=== PATIENT | female | born 1990 | race Two or more races ===

== ENCOUNTER 2019-09-06 06:00 | Day surgery (SDC) | payer OTHER ==
[2019-09-06] MEDS ORDERED: MIDAZOLAM 2 MG/2 ML VIAL IVP ONE (06:01)
[2019-09-06] MEDS ORDERED: PROPOFOL 200 MG/20 ML VIAL IVP ONE (06:01)
[2019-09-06] MEDS ORDERED: GLYCOPYRROLATE 1 MG/5 ML VIAL IVP ONE (06:01)
[2019-09-06] MEDS ORDERED: fentaNYL 100 MCG/2 ML VIAL IVP ONE (06:01)
[2019-09-06] MEDS ORDERED: LACTATED RINGERS 1,000 ML IV ONE (06:22)
[2019-09-06 06:49] LABS: HCG UR QUAL NEGATIVE
--- NOTE | 2019-09-06 07:01 | ANESTHESIA ---
Pre-Anesthesia VS, & Labs - Diagnosis symptomatic anal skin tag - Procedure excision of anal skin tag Vital Signs: Temp Pulse Resp BP Pulse Ox 38.0 C H 78 15 124/78 100 09/06/19 06:28 09/06/19 06:28 09/06/19 06:28 09/06/19 06:28 09/06/19 06:28 Height 5 ft 6 in Weight (kg) 62 kg - Is Patient ?: No (HCG negative) Home Medications and Allergies Home Medications: Ambulatory Orders Doxycycline Hyclate 100 mg PO BID 08/30/19 Ivermectin [Soolantra] 1 applic TP ONCE PRN 08/30/19 Levonorgestrel-Ethin Estradiol [Orsythia] 1 each PO DAILY 08/30/19 Doxycycline Hyclate 100 mg PO BID 08/30/19 Ivermectin [Soolantra] 1 applic TP ONCE PRN 08/30/19 Levonorgestrel-Ethin Estradiol [Orsythia] 1 each PO DAILY 08/30/19 Allergies/Adverse Reactions: Allergies Allergy/AdvReac Type Severity Reaction Status Date / Time latex Allergy Itching, Verified 09/06/19 06:45 rash Anes History & Medical History - Anesthetic History Anesthesia Complications: reports: No previous complications (has david had any anesthesia in the past) Family history of Anesthesia Complications: Denies Family history of Malignant Hyperthermia: Denies - Medical History Cardiovascular: reports: None Pulmonary: reports: None Gastrointestinal: reports: None Urinary: reports: None Neuro: reports: None Musculoskeletal: reports: None, Chronic back pain Endocrine/Autoimmune: reports: None Blood Disorders: reports: None Skin: reports: Rosacea Smoking Status: Never smoker Psychosocial: reports: Anxiety Exam Dental: WNL Mouth Openin Fingerbreadth Neck Mobility: Normal Mallampati classification: II Thyromental Distance: 4-6 cm Respiratory: Lungs clear, Normal breath sounds, No respiratory distress, No accessory muscle use Cardiovascular: Regular rate, Normal S1, Normal S2, No murmurs Abdomen: Normal bowel sounds, Soft, No tenderness, No hepatospenomegaly, No masses Extremities: No clubbing, No cyanosis, No edema, Normal pulses, No t enderness/swelling Neurological: Normal gait, Normal speech, Strength at 5/5 X4 ext, Normal tone, Sensation intact, Cranial nerves 3-12 NL, Reflexes 2+ Mental/Cognitive Status: Alert/Oriented X3, Normal for patient Cognitive Status: Within normal limits Plan Anesthesia Type: General Consent for Procedure(s) Verified and Reviewed: Yes Code Status: Attempt Resuscitation ASA classification: 1-Healthy patient Is this case an emergency?: No
[2019-09-06] MEDS ORDERED: BUPIVACAINE 0.5% PF 30 ML VIAL ONE (07:04)
--- NOTE | 2019-09-06 07:10 | ANESTHESIA ---
Pre-Anesthesia VS, & Labs Vital Signs: Temp Pulse Resp BP Pulse Ox 38.0 C H 78 15 124/78 100 09/06/19 06:28 09/06/19 06:28 09/06/19 06:28 09/06/19 06:28 09/06/19 06:28 Height 5 ft 6 in Weight (kg) 62 kg Home Medications and Allergies Home Medications: Ambulatory Orders Doxycycline Hyclate 100 mg PO BID 08/30/19 Ivermectin [Soolantra] 1 applic TP ONCE PRN 08/30/19 Levonorgestrel-Ethin Estradiol [Orsythia] 1 each PO DAILY 08/30/19 Doxycycline Hyclate 100 mg PO BID 08/30/19 Ivermectin [Soolantra] 1 applic TP ONCE PRN 08/30/19 Levonorgestrel-Ethin Estradiol [Orsythia] 1 each PO DAILY 08/30/19 Allergies/Adverse Reactions: Allergies Allergy/AdvReac Type Severity Reaction Status Date / Time latex Allergy Itching, Verified 09/06/19 06:45 rash Anes History & Medical History - Medical History Cardiovascular: reports: None Pulmonary: reports: None Gastrointestinal: reports: None Urinary: reports: None Musculoskeletal: reports: Chronic back pain Endocrine/Autoimmune: reports: None Skin: reports: Rosacea
--- NOTE | 2019-09-06 07:33 | SURGERY HX AND PHYSICAL(T) ---
Surgical History & Physical - PMH/PSH/Social Hx Does the pt have a hx of MRSA?: No Neurological History: None Eyes, Ears, Nose, Throat: Chronic vision loss Cardiovascular: None Respiratory: None Skin: Rosacea Endocrine/Autoimmune: None Gastrointestinal: None Urinary: None Musculoskeletal: Chronic back pain Blood Disorders: None Psychiatric: Anxiety Smoking Status: Never smoker - Home Meds and Allergies Home Medications: Doxycycline Hyclate 100 mg PO BID 08/30/19 Ivermectin [Soolantra] 1 applic TP ONCE PRN 08/30/19 Levonorgestrel-Ethin Estradiol [Orsythia] 1 each PO DAILY 08/30/19 Allergies/Adverse Reactions: Allergies Allergy/AdvReac Type Severity Reaction Status Date / Time latex Allergy Itching, Verified 09/06/19 06:45 rash - Vital Signs Heart Rate: 78 Blood Pressure: 124/78 Temperature: 38.0 C Respiratory Rate: 15 O2 Saturation: 100 Weight (kg): 62 kg Height: 1.68 m - Patient Review Patient Review: Problems were reviewed with the patient during this visit. Medications were reviewed with the patient during this visit. Allergies were reviewed this patient during this visit. Pertinent Tests Reviewed: All pertitent test for this patient were reviewed. - Assessment & Plan Assessment and Plan: This very pleasant 29-year-old female was seen again today in [facility]'s health care aide unit bed 5 for an update history and physical as she was initially seen for this very same problem back in June 11, 2019 and because no right to be obtained this operation was delayed until today. Back in June and again today the patient explained that she had history of external hemorrhoids but has not had issues for quite some time now. The skin tag first surfaced approximately 3 years ago and has become more bothersome recently. There is significant itching and burning and the patient states that she has be en unable to cleanse the area. She would like to have these skin tags removed. She denies any nausea, vomiting, constipation, diarrhea, melena, hematochezia, hematemesis, abdominal pain, or any unexplained weight loss or gain. When I evaluated her today her is at the bedside.Allergies: * LATEX (Critical) Current Meds: ESTRADIOL 2 MG ORAL TABLET (ESTRADIOL) Take one tablet by mouth daily; Route: ORAL DOXYCYCLINE HYCLATE 100 MG ORAL TABLET (DOXYCYCLINE HYCLATE) Take one tablet by mouth twice daily until gone; Route: ORAL LEVONORGEST-ETH ESTRAD 91-DAY 0.15-0.03 MG ORAL TABLET (LEVONORGEST-ETH ESTRAD 91-DAY) Take one tablet by mouth daily; Route: ORAL Current Problems: Anxiety (ICD-300.00) ([id number]) Anal skin tag (ICD-455.9) (JAL99-J36.4) Past Medical History: Anxiety external hemorrhoids anal skin tags Past Surgical History: No siginificant past surgical history noted Family History Summary: No significant family history. Social History Summary: Patient has never smoked. Patient has never used smokeless tobacco. Passive Smoke: N Alcohol Use: N Drug Use: N HIV/High Risk: N Regular Exercise: Y Review of Systems CONSTITUTIONAL: No weight loss, fever, chills, weakness, or fatigue. HEENT: Eyes: No visual loss, blurred vision, double vision or yellow sclerae. Ears, Nose, Throat: No hearing loss, sneezing, congestion, runny nose, or sore throat. SKIN: No rash or itching. RESPIRATORY: No shortness of breath, cough or sputum. GASTROINTESTINAL: No anorexia, nausea, vomiting or diarrhea. No abdominal pain or blood. GENITOURINARY: No dysuria. Not . NEUROLOGICAL: No headache, dizziness, syncope, paralysis, ataxia, numbness or tingling in the extremities. No change in bowel or bladder control. MUSCULOSKELETAL: No muscle, back pain, joint pain or stiffness. HEMATOLOGIC: No anemia, bleeding or bruising. LYMPHATICS: No enlarged nodes. No history of splenectomy. PSYCHIATRIC: No history of depression. HX ANXIETY. ENDOCRINOLOGIC: No reports of sweating, cold or heat intolerance. No polyuria or polydipsia. ALLERGIES: No history of asthma, hives, eczema or rhinitis. Physical Exam The examination was done with Princess in the room as my customer operations specialist. Please note that her was also in the room. General: 29 year old female evaluated in room 5 at [facility]'s health care aide unit, appears stated age, well developed, well nourished. Nurses aide. HEENT: Normocephalic, atraumatic, extraocular movement intact, mucous membranes pink and moist, sclera anicteric and not injected Neck: Supple without pain on palpation, mass or bruit Cardiac: Regular rate and rhythm without rub, gallop, or murmur Chest: Clear to auscultation bilaterally Abdomen: Benign Genitourinary: Deferred Rectal: Anal skin tag at 6 o'clock position, no anal fissure or hemorrhoids noted. Extremities: No gross neurovascular problem, no clubbing, cyanosis or edema Gait: I did not reevaluate this today as the patient was on a gurney. Psychiatric: Alert and oriented to person place and time, asks and answers questions appropriately, mood and affect appropriate Impression & Recommendations: Anal skin tag External anal skin tag excision. The indications, procedure, alternatives including not performing the operation, and risks including but not limited to infection, bleeding, transient incontinence, inability to urinate, and were fully explained to the patient and all questions were fully answered. I explained that following the surgery I wanted the patient's stool to be the consistency of toothpaste in other words soft to allow for proper healing. Constipation must be avoided. Verbal and written consent was obtained. Review of the patient's history does not reveal any significant systemic disease that would contraindicate the use of anesthesia. The patient in preparation for her surgery will be nothing by mouth, and her colon will be mechanically prepped. I also asked the patient to let me know if there is any way we can make her stay at [facility] more comfortable and she stated that she would let me know. The patient has been n.p.o. in preparation for her surgery. 20 minutes of [id number] time spent with the patient, the majority of which was spent in discussion and coordination of care, completion of paperwork and completion of the requisite paperwork.
[2019-09-06] MEDS ORDERED: BUPIVACAINE 0.5%-EPI 1:200000 PF 30 ML VIAL ONE (07:50)
[2019-09-06] MEDS ORDERED: BUPIVACAINE 0.5%-EPI 1:200000 PF 30 ML VIAL SUBQ ONE (07:58)
[2019-09-06] MEDS ORDERED: ONDANSETRON 4 MG/2 ML VIAL IVP PRN (08:11)
[2019-09-06] MEDS ORDERED: HYDROmorphone 0.5 MG/0.5 ML SYRINGE IVP PRN (08:11)
[2019-09-06] MEDS ORDERED: oxyCODONE 5 MG TABLET PO PRN (08:11)
--- NOTE | 2019-09-06 08:16 | OPERATIVE REPORT ---
Operative Report - General Procedure Date: 09/06/19 Planned Procedure: Excision of symptomatic anal skin tags Pre-Op Diagnosis: Symptomatic anal skin tags Procedure Performed: Excision of symptomatic anal skin tags using harmonic scalpel Post Op Diagnosis: Same - Procedure Note Primary Surgeon: Jeff Bose MD Anesthesia Provider: Jada Quiñonez CRNA Anesthesia Technique: Local (30 mL of half percent Marcaine with epinephrine), MAC IV Fluids (mL): 550 Estimated Blood Loss (mL): 1 Drain/Tube Type: Other (None) Complications: None. - Other Other Information/Narrative: OPERATIVE DESCRIPTION/REPORT: After verbal and written informed consent was obtained detailing the risks of infection, bleeding requiring transfusion with its risks, nerve injury, and , and after I met with the patient confirming the surgery and the site of the surgery, the patient was brought to the operative suite and placed supine on the operating table. Great care was taken to avoid pressure points to prevent pressure necrosis or nerve injury. Monitoring devices were applied along with TEDs and pneumatic compressive stockings (to prevent DVT). The patient received preoperative antibiotics for surgical prophylaxis. Jada Quiñonez CRNA sedated and anesthetized the patient for the entire procedure. The patient was prepped and draped in the usual sterile manner. A "time in" then confirmed that the patient was identified with 3 identifiers (name, date and medical record number), the history and physical was in the chart, the signed consent confirming the procedure was in the chart, the patient was in the correct position, the aforementioned prophylactic measures were in place or given, we had the correct personnel and equipment to complete the procedure and that anesthesia, surgery and nursing were given an opportunity to express any concerns. With the agreement of everyone in the room, we proceeded with the operation. There were two skin tags the largest of which was at the 6 o'clock position and the smaller of which was at the 11 o'clock position. After circumferentially injecting the anal and perianal area with % marcaine with epinephrine anesthetizing the region, these 2 skin tags (remnants of a previous external hemorrhoid) were resected with sequential application of the Harmonic scalpel. No significant bleeding was noted. The entire anal area was re-injected with % marcaine to try to ensure long-term pain control. A "time out" confirmed the operation performed, the fluids given, the estimated blood loss and anesthesia, surgery and nursing were given an opportunity to express any concerns. Having tolerated the procedure well, the patient was subsequently taken to short stay in good and stable condition. Dragon disclaimer: This document was created in part using voice recognition technology. Because of the inherent limitations of the system ([employer] user manual states that the licensee understands that speech recognition is a statistical process and that recognition errors are inherent in the process), occasional same sounding word substitutions and grammatical errors do occur and persist despite proofreading. Please read this document for context.
[2019-09-06] MEDS ORDERED: oxyCODONE 5 MG TABLET ONE (09:13)
[2019-09-06 09:38] VITALS: BP 110/65
== END 2019-09-06 06:01 | disposition home or self-care (01) ==
LOC: SDS 06:00
PROVIDERS: ATTEND Surgery
PROC: 0DBQXZZ Excision of Anus, External Approach (ICD-10-PCS; principal; 2019-09-06 07:30)
DX: K64.4 Residual hemorrhoidal skin tags (principal); G89.29 Other chronic pain; M54.9 Dorsalgia, unspecified; F41.9 Anxiety disorder, unspecified; H54.7 Unspecified visual loss
CPT/HCPCS: 46230; 81025; A9270; J7120